=== PATIENT | female | born 1995 | race Caucasian/White ===

== ENCOUNTER 2018-05-22 16:30 | Emergency (ER) | payer MEDICAID ==
[~2018-05-22] VITALS: Ht 162.6 cm; Wt 54.0 kg
[2018-05-22 16:34] VITALS: BP 119/68
== END 2018-05-22 20:38 | disposition left against medical advice (07) ==
LOC: ER 16:30
DX: O26.892 Other specified pregnancy related conditions, second trimester (principal); Z3A.21 21 weeks gestation of pregnancy; Z53.21 Procedure and treatment not carried out due to patient leaving prior to being seen by health care provider

== ENCOUNTER 2023-01-04 19:09 | Emergency (ER) | payer MEDICAID ==
[~2023-01-04] VITALS: Ht 175.3 cm; Wt 72.0 kg
[2023-01-04 19:13] VITALS: TEMP 99; O2SAT 99
[2023-01-04] MEDS ORDERED: LACTATED RINGERS 1,000 ML IV SCH (19:45)
[2023-01-04] MEDS ORDERED: KETOROLAC 15MG/ML VIAL IV ONE (19:45)
[2023-01-04] MEDS ORDERED: METOCLOPRAMIDE HCL 10MG/2ML VIAL IV ONE (19:45)
[2023-01-04] MEDS ORDERED: METOCLOPRAMIDE HCL 10MG/2ML VIAL IV NR (21:15)
[2023-01-04] MEDS ORDERED: KETOROLAC 15MG/ML VIAL IV NR (21:16)
[2023-01-04 21:30] VITALS: BP 117/70; PULSE 78; RESP 16
== END 2023-01-04 22:17 | disposition home or self-care (01) ==
LOC: ER 19:09
DX: G43.909 Migraine, unspecified, not intractable, without status migrainosus (principal); M54.2 Cervicalgia
CPT/HCPCS: 81025; 96361; 96374; 96375; 99284; J1885; J2765; Z7610 ×2